=== PATIENT | male | born 1970 | race Caucasian/White ===

== ENCOUNTER 2021-10-18 15:58 | Emergency (ER) | payer OTHER | END 2021-10-19 14:00 | disposition home or self-care (01) | LOC: M.ERS 15:58 | DX: J02.9 Acute pharyngitis, unspecified (principal); M79.10 Myalgia, unspecified site; R51.9 Headache, unspecified; Z53.21 Procedure and treatment not carried out due to patient leaving prior to being seen by health care provider ==

== ENCOUNTER 2021-10-19 11:31 | Emergency (ER) | payer OTHER ==
[~2021-10-19] VITALS: Ht 180.3 cm; Wt 104.3 kg
[2021-10-19 13:51] LABS: INFLUENZA A ANTIGEN Negative (Negative); INFLUENZA B ANTIGEN Negative (Negative)
[2021-10-19 14:05] VITALS: BP 148/86
== END 2021-10-19 14:00 | disposition home or self-care (01) ==
LOC: M.ERS 11:31
PROVIDERS: Physician Assistant
DX: J02.9 Acute pharyngitis, unspecified (principal); Z20.822 Contact with and (suspected) exposure to COVID-19; R42 Dizziness and giddiness; R53.83 Other fatigue; R05.9 Cough, unspecified; R09.81 Nasal congestion